=== PATIENT | male | born 1990 | race African-American/Black ===

== ENCOUNTER 2024-09-08 21:57 | Emergency (ER) | payer OTHER ==
[2024-09-08 22:14] VITALS: TEMP 98.5
[2024-09-09 00:36] LABS: Cocaine Screen,Urine Not Detected (NotDetected); Opiate Screen,Urine Not Detected (NotDetected); Phencyclidine Screen,Urine Not Detected (NotDetected); Urn Cannabinoid Scrn Detected (NotDetected)
[2024-09-09 00:37] LABS: Amphetamine Screen,Urine Detected (NotDetected); Barbiturate Screen,Urine Not Detected (NotDetected); Benzodiazepines Screen,Urine Not Detected (NotDetected); Methadone Screen, Urine Not Detected (NotDetected); Oxycodone Screen, Urine Not Detected (NotDetected); Tricyclic Antidepressant,Urine Not Detected (NotDetected)
--- NOTE | 2024-09-09 02:10 | XR ---
EXAM: XR Left Hand Complete, 3 or More Views CLINICAL HISTORY: injury TECHNIQUE: Frontal, lateral and oblique views of the left hand. COMPARISON: No relevant prior studies available. FINDINGS: Bones/joints: Unremarkable. No acute fracture. No dislocation. Soft tissues: Unremarkable. No radiopaque foreign body. IMPRESSION: No acute post-traumatic abnormality.
--- NOTE | 2024-09-09 02:27 | ED ---
Upper Extremity HPI - General Chief Complaint: Extremity Injury, Upper Stated Complaint: L Hand Injury Time Seen by Provider: 09/08/24 22:21 Source: patient Mode of arrival: ambulatory Limitations: no limitations - History of Present Illness Initial Comments: 34-year-old male with chief complaint of left hand injury. He reports that several weeks ago he had an drill bit injured the third knuckle. Patient has full range of motion but states that sometimes his finger locks in flexion. No swelling or discoloration. No obvious deformity. Patient is also requesting mental health evaluation. He admits to using meth prior to arrival. He states that he is worried that there are people in his house and he would like to be in a psychiatric unit. He denies any suicidal or homicidal ideation. No other symptoms at this time - Related Data Allergies Allergy/AdvReac Type Severity Reaction Status Date / Time No Known Allergies Allergy Verified 09/08/24 22:14 Review of Systems ROS Statement: Those systems with pertinent positive or pertinent negative responses have been documented in the HPI. ROS Other: All systems not noted in ROS Statement are negative. Past Medical History Past Medical History: No Reported History History of Any Multi-Drug Resistant Organisms: None Reported Past Surgical History: Appendectomy Past Psychological History: No Psychological Hx Reported Smoking Status: Current every day smoker Past Alcohol Use History: None Reported Past Drug Use History: Marijuana General Exam Limitations: no limitations General appearance: alert, appears intoxicated Head exam: Present: atraumatic, normocephalic, normal inspection Eye exam: Present: normal appearance, EOMI Neck exam: Present: normal inspection. Absent: meningismus Respiratory exam: Absent: respiratory distress Extremities exam: Present: normal inspection, full ROM. Absent: tenderness Neurological exam: Present: alert, altered (High on meth) Expanded Focused psych exam: Present: pressured speech, flight of ideas Skin exam: Present: normal color Course Vital Signs 09/08/24 09/09/24 22:10 02:33 Temperature 98.5 F Pulse Rate 117 H 53 L Respiratory 18 15 Rate Blood Pressure 154/71 158/97 O2 Sat by Pulse 96 95 Oximetry Medical Decision Making - Medical Decision Making Was pt. sent in by a medical professional or institution (, PA, GAME ADVISOR, urgent care, hospital, or intermediate...) When possible be specific @ -No Did you speak to anyone other than the patient for history (EMS, parent, family, police, friend...)? What history was obtained from this source @ -No Did you review nursing and triage notes (agree or disagree)? Why? @ -I reviewed and agree with nursing and triage notes Were old charts reviewed (outside hosp., previous admission, EMS record, old EKG, old radiological studies, urgent care reports/EKG's, intermediate records)? Report findings @ -No old charts were reviewed Differential Diagnosis (chest pain, altered mental status, abdominal pain women, abdominal pain men, vaginal bleeding, weakness, fever, dyspnea, syncope, headache, dizziness, GI bleed, back pain, seizure, CVA, palpatations, mental health, musculoskeletal)? @ -Differential Musculoskeletal Muscular strain, contusion, ligament sprain, fracture, arthritis, septic art hritis, bursitis, cellulitis, muscle spasm, nerve compression, DVT, arterial occlusion, herpes zoster, electrolyte abnormality, tumor.... This is not meant to be in all inclusive list EKG interpreted by me (3pts min.). @ -As above X-rays interpreted by me (1pt min.). @ -X-ray shows no acute posttraumatic abnormality CT interpreted by me (1pt min.). @ -None done U/S interpreted by me (1pt. min.). @ -None done What testing was considered but not performed or refused? (CT, X-rays, U/S, labs)? Why? @ -None What meds were considered but not given or refused? Why? @ -None Did you discuss the management of the patient with other professionals (professionals i.e. , PA, GAME ADVISOR, lab, RT, psych nurse, social media executive, housekeeping director, teacher, senior officer, manager of case management)? Give summary @ -I spoke with EPS nurse who states that the patient does not meet criteria for inpatient treatment. She forms a safety plan with him Was smoking cessation discussed for >3mins.? @ -No Was critical care preformed (if so, how long)? @ -No Were there social determinants of health that impacted care today? How? (Homelessness, low income, unemployed, alcoholism, drug addiction, transportation, low edu. Level, literacy, decrease access to med. care, skilled nursing, rehab)? @ -Polysubstance use Was there de-escalation of care discussed even if they declined (Discuss DNR or withdrawal of care, Hospice)? DNR status @ -No What co-morbidities impacted this encounter? (DM, HTN, Smoking, COPD, CAD, Cancer, CVA, ARF, Chemo, Hep., AIDS, mental health diagnosis, sleep apnea, morbid obesity)? @ -None Was patient admitted / discharged? Hospital course, mention meds given and route, prescriptions, significant lab abnormalities, going to OR and other pertinent info. @ -34-year-old male presenting with chief complaint left hand injury 3 weeks ago. He has full range of motion with no obvious deformity. States that sometimes his third finger gets stuck in flexion since the injury. Negative x- ray. He is also requesting a mental health evaluation. Admits to using methamphetamine prior to arrival. No suicidal homicidal ideation. His urine drug screen is positive for methamphetamines and marijuana. Evaluated by EPS, patient does not meet criteria for inpatient management. Safety plan is formed. Patient has a friend who can take him home. Discharged. Follow-up with PCP. Report back to ER with any new or worsening symptoms. Discussed return parameters and answered all questions. Patient conveyed verbal understanding and agreed to the plan. I discussed this case in detail with my attending Dr. Yoo Undiagnosed new problem with uncertain prognosis? @ -No Drug Therapy requiring intensive monitoring for toxicity (Heparin, Nitro, Insulin, Cardizem)? @ -No Were any procedures done? @ -No Diagnosis/symptom? @ -Hand injury, polysubstance use Acute, or Chronic, or Acute on Chronic? @ -Acute Uncomplicated (without systemic symptoms) or Complicated (systemic symptoms)? @ -Uncomplicated Side effects of treatment? @ -No Exacerbation, Progression, or Severe Exacerbation? @ -No Poses a threat to life or bodily function? How? (Chest pain, USA, MD, pneumonia, PE, COPD, DKA, ARF, appy, cholecystitis, CVA, Diverticulitis, Homicidal, Suicidal, threat to staff... and all critical care pts) @ -Continued polysubstance use is a threat, advised to stop using drugs - Lab Data Lab Results 09/08/24 Range/Units 23:23 Urine Opiates Screen Not Detected (NotDetected) Ur Oxycodone Screen Not Detected (NotDetected) Urine Methadone Screen Not Detected (NotDetected) Ur Barbiturates Screen Not Detected (NotDetected) U Tricyclic Antidepress Not Detected (NotDetected) Ur Phencyclidine Scrn Not Detected (NotDetected) Ur Amphetamines Screen Detected H (NotDetected) U Methamphetamines Scrn Detected H (NotDetected) U Benzodiazepines Scrn Not Detected (NotDetected) Urine Cocaine Screen Not Detected (NotDetected) U Marijuana (THC) Screen Detected H (NotDetected) Disposition Clinical Impression: Hand injury, Polysubstance use disorder Disposition: HOME SELF-CARE Condition: Fair Instructions (If sedation given, give patient instructions): Polysubstance Ab use (ED) Additional Instructions: Follow-up with PCP and orthopedics. Report back to ER with any new or worsening symptoms. Stop taking drugs, you can if you do not stop taking drugs Is patient prescribed a controlled substance at d/c from ED?: No Referrals: None,Stated [Primary Care Provider] - 1-2 days Juan Alberto Hicks MD [STAFF PHYSICIAN] - 1-2 days Marita Weaver DO [Doctor of Osteopathic Medicine] - 1-2 days Time of Disposition: 02:26
[2024-09-09 02:35] VITALS: BP 158/97; PULSE 53; RESP 15
== END 2024-09-09 02:35 | disposition home or self-care (01) ==
LOC: EC 21:57
DX: S69.92XA Unspecified injury of left wrist, hand and finger(s), initial encounter (principal); F19.20 Other psychoactive substance dependence, uncomplicated; F17.200 Nicotine dependence, unspecified, uncomplicated; X58.XXXA Exposure to other specified factors, initial encounter
CPT/HCPCS: 80306; 82075; 93005; 99284